=== PATIENT | male | born 1935 | race Caucasian/White ===

== ENCOUNTER → 2016-10-29 | Outpatient (CLI) | payer OTHER | LOC: CT 15:16 | DX: R10.31 Right lower quadrant pain (principal) ==

== ENCOUNTER → 2016-11-19 | Outpatient (CLI) | payer OTHER | LOC: CT 07:46 | DX: R10.13 Epigastric pain (principal); K76.89 Other specified diseases of liver | CPT/HCPCS: J7050; Q9962 ==